=== PATIENT | female | born 1980 | race American Indian/Alaskan Native ===

== ENCOUNTER 2017-10-22 08:40 | Emergency (ER) | payer MEDICAID ==
[2017-10-22 09:15] VITALS: RESP 18; TEMP 99.3; BMI 32.5
[2017-10-22] MEDS ORDERED: Sodium Chloride 0.9% 1,000 ML IV STA (09:17)
[2017-10-22] MEDS ORDERED: DiphenhydrAMINE 50 mg/ml Inj IVP STA (09:18)
--- NOTE | 2017-10-22 09:53 | ED PDOC ---
Arrival/HPI - General Chief Complaint: Headache Time Seen by Provider: 10/22/17 09:00 Historian: Patient - History of Present Illness Narrative History of Present Illness (Text): 10/22/17 09:50 37yo female with no pmhx, present with one week history of frontal headache with associated photophobia, decreased appetite and nausea. Reports two episodes of vomiting since this morning. States she spoke with her OB and was told to sleep. she notes that she is 6weeks . Denies history of this headache in the past. Denies nuchal ridgity, fever, chills, neck pain, trauma, focal weakness, slurred speech, visual changes, abdominal pain, vaginal bleeding, any other complaint. Past Medical History - Provider Review Nursing Documentation Reviewed: Yes - Psychiatric Hx Substance Use: No - Surgical History Hx Orthopedic Surgery: Yes (bilateral feet) Family/Social History - Physician Review Nursing Documentation Reviewed: Yes Family/Social History: Unknown Family HX Smoking Status: Never Smoked Hx Alcohol Use: No Hx Substance Use: No Allergies/Home Meds Allergies/Adverse Reactions: Allergies No Known Allergies Allergy (Verified 10/22/17 09:16) Home Medications: Home Meds Medication Instructions Recorded Confirmed Vit Calc,Iron,Folic 1 tab PO DAILY 10/22/17 10/22/17 [ Vitamins] Review of Systems - Physician Review All systems were reviewed & negative as marked: Yes - Review of Systems Constitutional: Normal Eyes: Photophobia ENT: Normal Respiratory: Normal Cardiovascular: Normal Gastrointestinal: Nausea, Vomiting. absent: Abdominal Pain, Constipation, Diarrhea, Hematochezia, Hematemesis Genitourinary Female: Normal Musculoskeletal: Normal Skin: Normal Neurological: Headache. absent: Dizziness, Focal Weakness, Speech Changes Endocrine: Normal Hemo/Lymphatic: Normal Psychiatric: Normal Physical Exam Vital Signs Reviewed: Yes Vital Signs Temp Pulse Resp BP Pulse Ox 10/22/17 09:14 99.3 F 96 H 18 104/80 100 Temperature: Afebrile Blood Pressure: Normal Pulse: Regular Respiratory Rate: Normal Appearance: Positive for: Well-Appearing, Non-Toxic, Comfortable Pain Distress: None Mental Status: Positive for: Alert and Oriented X 3 - Systems Exam Head: Present: Atraumatic, Normocephalic Pupils: Present: PERRL Extroacular Muscles: Present: EOMI Conjunctiva: Present: Normal Mouth: Present: Moist Mucous Membranes Neck: Present: Normal Range of Motion Respiratory/Chest: Present: Clear to Auscultation, Good Air Exchange. No: Respiratory Distress, Accessory Muscle Use Cardiovascular: Present: Regular Rate and Rhythm, Normal S1, S2. No: Murmurs Abdomen: No: Tenderness, Distention, Peritoneal Signs Back: Present: Normal Inspection Upper Extremity: Present: Normal Inspection. No: Cyanosis, Edema Lower Extremity: Present: Normal Inspection. No: Edema Neurological: Present: GCS=15, CN II-XII Intact, Speech Normal, Motor Func Grossly Intact, Normal Sensory Function, Normal Cerebellar Funct, Norm Deep Tendon Reflexes, Gait Normal, Memory Normal, Normal 2Pt Descrimination, Other ( No focal neurological deficit) Skin: Present: Warm, Dry, Normal Color. No: Rashes Psychiatric: Present: Alert, Oriented x 3, Normal Insight, Normal Concentration Medical Decision Making ED Course and Treatment: 10/22/17 09:53 37yo female , 6weeks present for headache with associated nausea/ vomiting, photophobia x one week. Labs ordered 1L NS, Reglan, Benadryl, Tylenol ordered Will reassess pt. 10/22/17 11:46 Labs was reviewed with mild leukocytosis likely secondary to , otherwise unremarkable. On re evaluation pt notes that her headache resolved. Result was DW the pt. She will be DC home. Advised to f/u with her PMD and to take Tylenol as needed every 6hrs for headache. - Lab Interpretations Lab Results: 10/22/17 09:40 10/22/17 09:40 Lab Results 10/22/17 09:40: Beta HCG, Quant 00800.00 H 10/22/17 09:40: Sodium 136, Potassium 4.4, Chloride 100, Carbon Dioxide 23, Anion Gap 16, BUN 8, Creatinine 0.7, Est GFR ( Amer) > 60, Est GFR (Non- Af Amer) > 60, Random Glucose 102, Calcium 8.8, Total Bilirubin 0.4, AST 23, ALT 24, Alkaline Phosphatase 66, Total Protein 7.6, Albumin 4.1, Globulin 3.5, Albumin/Globulin Ratio 1.1 10/22/17 09:40: Urine Color Yellow, Urine Appearance Clear, Urine pH 8.0, Ur Specific [place] 1.020, Urine Protein Trace H, Urine Glucose (UA) Negative, Urine Ketones Negative, Urine Blood Negative, Urine Nitrate Negative, Urine Bilirubin Negative, Urine Urobilinogen 1.0 H, Ur Leukocyte Esterase Negative, Urine RBC 0 - 2, Urine WBC 1 - 3, Ur Epithelial Cells 6 - 8, Urine Bacteria Mod , Urine HCG, Qual Positive 10/22/17 09:40: PT 12.1, INR 1.05, APTT 28.6 10/22/17 09:40: WBC 12.9 H, RBC 4.61, Hgb 12.7, Hct 38.4, MCV 83.3, MCH 27.5, MCHC 33.1, RDW 13.6, Plt Count 173, MPV 12.2 H, Gran % 90.0 H, Lymph % (Auto) 6.0 L, [place] % (Auto) 3.9, Eos % (Auto) 0.0 L, Baso % (Auto) 0.1, Gran # 11.60 H , Lymph # (Auto) 0.8 L, [place] # (Auto) 0.5, Eos # (Auto) 0.0, Baso # (Auto) 0.01 - Medication Orders Current Medication Orders: Discontinued Medications Acetaminophen (Tylenol 325mg Tab) 650 mg PO STAT STA Stop: 10/22/17 09:18 Last Admin: 10/22/17 09:43 Dose: 650 mg Diphenhydramine HCl (Benadryl) 25 mg IVP STAT STA Stop: 10/22/17 09:19 Last Admin: 10/22/17 09:43 Dose: 25 mg IVP Administration Document 10/22/17 09:43 (Rec: 10/22/17 09:43 [email or web address] Charges for Administration # of IVP Administrations 1 Sodium Chloride (Sodium Chloride 0.9%) 1,000 mls @ 999 mls/hr IV .Q1H1M STA Stop: 10/22/17 10:17 Last Admin: 10/22/17 09:43 Dose: 999 mls/hr eMAR Start Stop Document 10/22/17 09:43 (Rec: 10/22/17 09:43 [email or web address]) Intravenous Solution Start Date 10/22/17 Start Time 09:43 End Date 10/22/17 End time 10:44 Total Infusion Time 61 Metoclopramide HCl (Reglan) 10 mg IVP STAT STA Stop: 10/22/17 09:19 Last Admin: 10/22/17 09:43 Dose: 10 mg IVP Administration Document 10/22/17 09:43 SF (Rec: 10/22/17 09:43 [email or web address]) Charges for Administration # of IVP Administrations 1 Disposition/Present on Arrival - Present on Arrival Any Indicators Present on Arrival: No History of DVT/PE: No History of Uncontrolled Diabetes: No Urinary Catheter: No History of Decub. Ulcer: No History Surgical Site Infection Following: None - Disposition Have Diagnosis and Disposition been Completed?: Yes Diagnosis: Headache, , Nausea & vomiting Disposition: HOME/ ROUTINE Disposition Time: 11:50 Patient Plan: Discharge Condition: STABLE Discharge Instructions (ExitCare): Nausea and Vomiting, Adult, Headache, Adult (DC) Additional Instructions: Follow up with your doctor Return to ED for any new or worsening symptoms Referrals: Dick Cleveland, [Primary Care Provider] - [facility] [Outside] - Follow up with primary [facility] [Outside] - Follow up with primary Forms: [employer] (Romanian)
[2017-10-22 10:13] LABS: BASO # 0.01 K/mm3 (0.0-2.0); BASO % 0.1 % (0.0-3.0); GRAN # 11.6 (1.4-6.5); HEMOGLOBIN 12.7 g/dL (12.0-16.0); LYMPH # 0.8 (1.2-3.4); MEAN CELL VOLUME 83.3 fl (80.0-105.0); MEAN CORPUSCULAR HEMOGLOBIN 27.5 pg (25.0-35.0); MEAN CORPUSCULAR HGB CONC 33.1 g/dl (31.0-37.0); MEAN PLATELET VOLUME 12.2 fl (7.0-11.0); MONO # 0.5 (0.1-0.6); MONO % 3.9 % (1.0-6.0); RBC 4.61 10^6/uL (3.5-6.1); RED CELL DISTRIBUTION WIDTH 13.6 % (11.5-14.5); WHITE BLOOD COUNT 12.9 10^3/ul (4.5-11.0)
[2017-10-22 10:14] LABS: URINE BILIRUBIN NEGATIVE (NEGATIVE); URINE BLOOD NEGATIVE (NEGATIVE); URINE GLUCOSE (UA) NEGATIVE (NEGATIVE); URINE LEUKOCYTE ESTERASE NEGATIVE Leu/uL (NEGATIVE); URINE PROTEIN TRACE mg/dL (<30 mg/dL)
[2017-10-22 10:15] LABS: URINE APPEARANCE CLEAR (CLEAR); URINE COLOR YELLOW (YELLOW)
[2017-10-22 10:21] LABS: ALB/GLOB RATIO 1.1 (1.1-1.8); ALBUMIN 4.1 g/dL (3.0-4.8); ALT/SGPT 24 U/L (7-56); AST/SGOT 23 U/L (14-36); BLOOD UREA NITROGEN 8 mg/dL (7-21); CALCIUM 8.8 mg/dL (8.4-10.5); GFR AFRICAN-AMERICAN > 60; GFR NON-AFRICAN AMERICAN > 60
[2017-10-22 10:24] LABS: HCG,QUALITATIVE URINE POSITIVE (NEGATIVE)
[2017-10-22 10:32] LABS: URINE RBC 0 - 2 /hpf (0-2)
[2017-10-22 10:33] LABS: URINE BACTERIA MOD (NEG)
[2017-10-22 10:48] LABS: INR 1.05 (0.93-1.08); PARTIAL THROMBOPLASTIN TIME 28.6 Seconds (25.1-36.5); PROTHROMBIN TIME 12.1 SECONDS (9.4-12.5)
[2017-10-22 11:52] VITALS: BP 110/78; PULSE 88
[2017-10-22 14:31] VITALS: O2SAT 99
== END 2017-10-22 12:05 | disposition home or self-care (01) ==
LOC: ED 08:40 → MERGE 08:40 → ED 12:05
DX: O21.9 Vomiting of pregnancy, unspecified (principal); O26.891 Other specified pregnancy related conditions, first trimester; R51 Headache; Z3A.01 Less than 8 weeks gestation of pregnancy
CPT/HCPCS: 80053; 81001; 84702; 84703; 85025; 85610; 85730; 96361; 96374; 96375; 99285; J1200; J2765; J7030